=== PATIENT | male | born 1965 | race Caucasian/White ===

== ENCOUNTER 2018-11-01 06:52 | Day surgery (SDC) | payer OTHER ==
[~2018-11-01 06:52] MED LIST: Lactated Ringers 1,000 ML IV SCH
[2018-11-01] MEDS ORDERED: Lidocaine 2% 5 ML SDV ONE (07:00)
[2018-11-01] MEDS ORDERED: Ondansetron 4 MG/2 ML SDV ONE (07:00)
[2018-11-01] MEDS ORDERED: Midazolam 1 MG/ML 2 ML SDV ONE (07:01)
[2018-11-01] MEDS ORDERED: fentaNYL 250 MCG/5 ML SDV ONE (07:01)
[2018-11-01] MEDS ORDERED: Propofol 200 MG/20 ML SDV ONE (07:01)
[2018-11-01] MEDS ORDERED: Lidocaine 1% 20 ML MDV ONE (07:42)
--- NOTE | 2018-11-01 07:49 | PCM.PREANE ---
Preanesthetic Assessment - Anesthesia/Transfusion/Family Hx Anesthesia History: Prior Anesthesia Without Reaction Family History of Anesthesia Reaction: No Transfusion History: Prior Transfusion Without Reaction Intubation History: Unknown - Review of Systems General: No Symptoms Pulmonary: No Symptoms Cardiovascular: No Symptoms Gastrointestinal: No Symptoms Neurological: No Symptoms Other: Reports: None - Physical Assessment NPO Status Date: 11/01/18 NPO Status Time: 06:00 O2 Sat by Pulse Oximetry: 94 Respiratory Rate: 20 Vital Signs: Last Vital Signs Temp 36.3 C 11/01/18 07:04 Pulse 62 11/01/18 07:04 Resp 20 11/01/18 07:04 BP 131/83 11/01/18 07:04 Pulse Ox 94 L 11/01/18 07:04 Height: 6 ft 3 in Weight: 114.305 kg ASA Class: 2 Mental Status: Alert & Oriented x3 Airway Class: Mallampati = 2 Dentition: Reports: Normal Dentition Thyro-Mental Finger Breadths: 3 Mouth Opening Finger Breadths: 3 ROM/Head Extension: Limited/Partial Lungs: Clear to Auscultation, Normal Respiratory Effort Cardiovascular: Regular Rate, Regular Rhythm - Allergies Allergies/Adverse Reactions: Allergies Allergy/AdvReac Type Severity Reaction Status Date / Time No Known Allergies Allergy Verified 10/30/18 08:03 - Blood Blood Available: No - Anesthesia Plan Pre-Op Medication Ordered: None - Acknowledgements Anesthesia Type Planned: General Anesthesia Pt an Appropriate Candidate for the Planned Anesthesia: Yes Alternatives and Risks of Anesthesia Discussed w Pt/Guardian: Yes Pt/Guardian Understands and Agrees with Anesthesia Plan: Yes PreAnesthesia Questionnaire HEENT History: Reports: None Cardiovascular History: Reports: None Respiratory History: Reports: Bronchitis, Recurrent, Pneumonia, Recurrent Gastrointestinal History: Reports: GI Bleed Genitourinary History: Reports: None Musculoskeletal History: Reports: Gout, Neck Pain, Chronic (chronic opioid use, he will have spinal cord stimulator done in 2 months) Neurological History: Reports: Other (See Below) (headaches) Psychiatric History: Reports: None Endocrine/Metabolic History: Reports: Obesity/BMI 30+ Hematologic History: Reports: Blood Transfusion(s) Immunologic History: Reports: None Oncologic (Cancer) History: Reports: None Dermatologic History: Reports: None - Past Surgical History Head Surgeries/Procedures: Reports: None HEENT Surgical History: Reports: None Cardiovascular Surgical History: Reports: None Respiratory Surgical History: Reports: None GI Surgical History: Reports: Other (See Below) Other GI Surgeries/Procedures: abdominal surgery for perferated ulcer Male Surgical History: Reports: None Endocrine Surgical History: Reports: None Neurological Surgical History: Reports: C-Spine Other Neurological Surgeries/Procedures: Anterior cervical spine fusions and Musculoskeletal Surgical History: Reports: None Oncologic Surgical History: Reports: None Dermatological Surgical History: Reports: None - SUBSTANCE USE Smoking Status *Q: Never Smoker Tobacco Use Within Last Twelve Months: Other (See Below) (quit chewing 2 months ago) - HOME MEDS Home Medications: Home Meds Acetaminophen [Tylenol] 1 - 2 tab PO ASDIRECTED PRN 10/30/18 [History] Allopurinol [Zyloprim] 100 mg PO ASDIRECTED 10/30/18 [History] Baclofen 10 mg PO TID PRN 10/30/18 [History] Budesonide/Formoterol [Symbicort 160-4.5 MCG] 2 puff INH BID PRN 10/30/18 [ History] Diclofenac Sodium [Voltaren 1% Gel] 1 applic TOP ASDIRECTED PRN 10/30/18 [ History] Multivitamin [Multivitamins] 1 tab PO DAILY 10/30/18 [History] Pantoprazole Sodium 40 mg PO DAILY 10/30/18 [History] - CURRENT (IN HOUSE) MEDS Current Meds: Current Medications Hydrocodone Bitart/Acetaminophen ([place] 325-5 Mg) 1 - 2 tab PO Q4H PRN PRN Reason: Pain Cefazolin Sodium/Dextrose 2 gm (/ Premix) 50 mls @ 100 mls/hr IV ONCALL [facility] Lactated Ringer's (Ringers, Lactated) 1,000 mls @ 100 mls/hr IV ASDIRECTED [facility] Last Admin: 11/01/18 07:10 Dose: 100 mls/hr Discontinued Medications Fentanyl (Sublimaze) Confirm Administered Dose 250 mcg .ROUTE .STK-MED ONE Stop: 11/01/18 07:02 Lidocaine (Xylocaine-Mpf 2%) Confirm Administered Dose 5 ml .ROUTE .STK-MED ONE Stop: 11/01/18 07:01 Lidocaine HCl (Xylocaine 1%) Confirm Administered Dose 20 ml .ROUTE .STK-MED ONE Stop: 11/01/18 07:43 Midazolam HCl (Versed 1 Mg/Ml) Confirm Administered Dose 2 mg .ROUTE .STK-MED ONE Stop: 11/01/18 07:02 Ondansetron HCl (Zofran) Confirm Administered Dose 4 mg .ROUTE .STK-MED ONE Stop: 11/01/18 07:01 Propofol (Diprivan 20 Ml) Confirm Administered Dose 200 mg .ROUTE .STK-MED ONE Stop: 11/01/18 07:02
[2018-11-01] MEDS ORDERED: ceFAZolin 2 GM in Premix Bag 1 BAG IV SCH (08:00)
[2018-11-01] MEDS ORDERED: Acetaminophen/HYDROcodone 325-5 MG Tab PO PRN (08:00)
[2018-11-01] MEDS ORDERED: ceFAZolin 1 GM Vial ONE (08:41)
[2018-11-01] MEDS ORDERED: ePHEDrine 50 MG/ML SDV ONE (08:47)
[2018-11-01] MEDS ORDERED: Glycopyrrolate 0.2 MG/ML SDV ONE (08:49)
[2018-11-01] MEDS ORDERED: Atropine 0.1 MG/ML 10 ML Syringe IVPUSH PRN ×2 (09:05)
[2018-11-01] MEDS ORDERED: 50% Dextrose in Water 50 ML Syringe IVPUSH PRN (09:05)
[2018-11-01] MEDS ORDERED: EPINEPHrine 1:10,000 1 MG/10 ML Syringe IVPUSH PRN (09:05)
[2018-11-01] MEDS ORDERED: Albuterol 0.083% 2.5 MG/3 ML Neb Soln NEB PRN (09:05)
[2018-11-01] MEDS ORDERED: Naloxone 0.4 MG/ML Syringe IVPUSH PRN (09:05)
[2018-11-01] MEDS ORDERED: fentaNYL 100 MCG/2 ML SDV IVPUSH PRN (09:05)
[2018-11-01] MEDS ORDERED: Sodium Chloride 0.9% 20 ML ONE (09:26)
--- NOTE | 2018-11-01 09:36 | PCM.OPNOTE ---
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
--- NOTE | 2018-11-01 10:51 | OR ---
SURGEON: Sunita Valencia MD DATE OF PROCEDURE: 11/01/2018 PREOPERATIVE DIAGNOSIS: Right knee pain. POSTOPERATIVE DIAGNOSIS: Osteochondral defect, right lateral femoral condyle. PROCEDURE: 1. Right knee arthroscopy with chondroplasty, lateral femoral condyle. 2. Excision of loose body (7 mm x 15 mm x 4 mm). PRIMARY SURGEON: Sunita Valencia MD. CONCRETE BUCKET HOOKER: LAKESHIA Jones. ANESTHESIA: General. ESTIMATED BLOOD LOSS: 5 mL. TOURNIQUET TIME: See nursing record. COMPLICATIONS: None. DVT PROPHYLAXIS: Not indicated. IMPLANTS USED: None. BRIEF HISTORY: Suresh is a 53-year-old male who has had complaint of progressive right knee pain. He had failed conservative treatment. Due to his lack of response to conservative treatment, I did recommend surgical intervention. The risks and goals of procedure were discussed with the patient and were documented preoperatively. He agreed to proceed. DESCRIPTION OF PROCEDURE: The patient was properly identified and brought to the operating room. He was transferred from the OR cart and placed on the operating table in supine position. General anesthesia was administered. After adequate anesthesia was obtained, a well-padded tourniquet was applied to the right lower extremity. The right lower extremity was then prepped in standard fashion using ChloraPrep solution. It was then sterilely draped. A time-out was performed to ensure correct site and procedure. Preoperative antibiotics were given. The surgical site had been marked preoperatively. An Esmarch was used to exsanguinate the right lower extremity and the tourniquet was inflated to 250 mmHg. A lateral portal arthrotomy was established. Blunt trocar and cannula were introduced into the suprapatellar pouch. Camera, inflow, and outflow were assembled. No significant synovitis was noted. The patellofemoral joint was visualized. 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 No loose cartilaginous flaps were noted. The patella appeared to track centrally. I then extended down the lateral and medial gutter. No loose bodies were identified. I then entered the medial compartment. A medial portal arthrotomy was established. A blunt probe was inserted. The meniscus was probed. He was found to have some minor degenerative fraying along the central portion of the meniscus and this was trimmed with a combination of biter and shaver. The remainder of the joint surfaces showed minimal degenerative changes consistent with grade 1 to grade 2 chondromalacia. I then entered the notch. Immediately evident was a large loose body along the anterior aspect of the ACL. This was removed without difficulty. It was measured on the back table and measured 7 mm x 15 mm x 4 mm. The ACL and PCL were probed and found to be intact. I then entered the lateral compartment. Immediately evident was a large defect along the weightbearing portion of the lateral femoral condyle, which measured approximately 15 mm x 20 mm. This was nearly full-thickness cartilage loss with minimal cartilage remaining at the base of the lesion. The edges were probed and were found to be mostly stable. A chondroplasty was used to remove any loose cartilage at the edges. The meniscus was probed and found to be intact. The lateral tibial plateau showed diffuse grade 2 degenerative findings. Instruments were then removed from the knee. The portal sites were closed with 3-0 nylon. 1% Lidocaine was injected along the portal tracts. Xeroform gauze was placed over the wound and a bulky dressing was applied. The tourniquet was then deflated. He was awakened from his anesthetic and transferred back to the operating room cart. He was brought to recovery room in stable condition. All needle and sponge counts were correct. JAYLEN / HAYDEN /[id number]
== END 2018-11-01 10:59 | disposition home or self-care (01) ==
LOC: MW.SDS 06:52
PROVIDERS: ATTEND Orthopaedic Surgery
DX: M21.861 Other specified acquired deformities of right lower leg (principal); M65.861 Other synovitis and tenosynovitis, right lower leg; M22.41 Chondromalacia patellae, right knee; M23.300 Other meniscus derangements, unspecified lateral meniscus, right knee; M17.11 Unilateral primary osteoarthritis, right knee; M10.9 Gout, unspecified; F17.220 Nicotine dependence, chewing tobacco, uncomplicated; E66.9 Obesity, unspecified; Z79.899 Other long term (current) drug therapy; Z68.31 Body mass index [BMI] 31.0-31.9, adult
CPT/HCPCS: 29881; J0690; J2001; J2250; J2405; J2704; J3010; J3490; J7120; 01400; 88304

== ENCOUNTER 2019-01-20 18:36 | Emergency (ER) | payer OTHER ==
[2019-01-20] MEDS ORDERED: Ketorolac 30 MG/ML SDV IVPUSH ONE (19:05)
[2019-01-20] MEDS ORDERED: Ondansetron 4 MG/2 ML SDV IVPUSH ONE (19:05)
[2019-01-20] MEDS ORDERED: Sodium Chloride 0.9% 1,000 ML IV ONE (19:05)
--- NOTE | 2019-01-20 19:08 | EDM.PDOC ---
ED HPI GENERAL MEDICAL PROBLEM - General Chief Complaint: Flank Pain Stated Complaint: PAIN IN KIDNEY AREA Time Seen by Provider: 01/20/19 19:08 Source of Information: Reports: Patient - History of Present Illness INITIAL COMMENTS - FREE TEXT/NARRATIVE: HISTORY AND PHYSICAL: History of present illness: [Patient presents with right flank pain radiating to the testicle since noon today no fever vomiting chills or sweats no chest pain shortness breath headache dizziness palpitation no bowel or urine symptoms however he does rate pain 8 out of 10 at current on arrival ] Review of systems: As per history of present illness and below otherwise all systems reviewed and negative. Past medical history: As per history of present illness and as reviewed below otherwise noncontributory. Surgical history: As per history of present illness and as reviewed below otherwise noncontributory. Social history: No reported history of drug or alcohol abuse. Family history: As per history of present illness and as reviewed below otherwise noncontributory. Physical exam: HEENT: Atraumatic, normocephalic, pupils reactive, negative for conjunctival pallor or scleral icterus, mucous membranes moist, throat clear, neck supple, nontender, trachea midline. Lungs: Clear to auscultation, breath sounds equal bilaterally, chest nontender. Heart: S1S2, regular, negative for clicks, rubs, or JVD. Abdomen: Soft, nondistendedtenderness on deep palpation on the rightve for masses or hepatosplenomegaly. Negative for costovertebral tenderness. Pelvis: Stable nontender. Genitourinary: Deferred. Rectal: Deferred. Extremities: Atraumatic, negative for cords or calf pain. Neurovascular unremarkable. Neuro: Awake, alert, oriented. Cranial nerves II through XII unremarkable. Cerebellum unremarkable. Motor and sensory unremarkable throughout. Exam nonfocal. Diagnostics: [EDC CMP UA DT abdomen pelvis no contrast ] Therapeutics: [Renal saline Zofran Toradol Morphine Ayden Flomax Zofran ] Impression: [ 3 mm right ureteral stone Large gallstone incidental ] landing Chronic history of baseline Definitive disposition and diagnosis as appropriate pending reevaluation and review of above. right flank Pain Score (Numeric/FACES): 10 right testicle Pain Score (Numeric/FACES): 10 - Related Data Allergies Allergy/AdvReac Type Severity Reaction Status Date / Time No Known Allergies Allergy Verified 01/20/19 18:49 Home Meds: Home Meds Acetaminophen [Tylenol] 1 - 2 tab PO ASDIRECTED PRN 10/30/18 [History] Allopurinol [Zyloprim] 100 mg PO ASDIRECTED 10/30/18 [History] Budesonide/Formoterol [Symbicort 160-4.5 MCG] 2 puff INH BID PRN 10/30/18 [ History] Multivitamin [Multivitamins] 1 tab PO DAILY 10/30/18 [History] Pantoprazole Sodium 40 mg PO DAILY 10/30/18 [History] Past Medical History HEENT History: Reports: None Cardiovascular History: Reports: None Respiratory History: Reports: Bronchitis, Recurrent, Pneumonia, Recurrent Gastrointestinal History: Reports: GI Bleed Genitourinary History: Reports: None Musculoskeletal History: Reports: Gout, Neck Pain, Chronic Neurological History: Reports: Other (See Below) Psychiatric History: Reports: None Endocrine/Metabolic History: Reports: Obesity/BMI 30+ Hematologic History: Reports: Blood Transfusion(s) Immunologic History: Reports: None Oncologic (Cancer) History: Reports: None Dermatologic History: Reports: None - Past Surgical History Head Surgeries/Procedures: Reports: None HEENT Surgical History: Reports: None Cardiovascular Surgical History: Reports: None Respiratory Surgical History: Reports: None GI Surgical History: Reports: Other (See Below) Other GI Surgeries/Procedures: abdominal surgery for perferated ulcer Male Surgical History: Reports: None Endocrine Surgical History: Reports: None Neurological Surgical History: Reports: C-Spine Other Neurological Surgeries/Procedures: Anterior cervical spine fusions '98 and '04 Musculoskeletal Surgical History: Reports: Arthroscopic Knee, Other (See Below) Other Musculoskeletal Surgeries/Procedures:: neck fusion Oncologic Surgical History: Reports: None Dermatological Surgical History: Reports: None Social & Family History - Family History Family Medical History: Noncontributory - Tobacco Use Smoking Status *Q: Never Smoker - Recreational Drug Use Recreational Drug Use: No ED ROS GENERAL - Review of Systems Review Of Systems: See Below ED EXAM, GENERAL - Physical Exam Exam: See Below Course - Vital Signs Last Recorded V/S: Last Vital Signs Temp 97.5 F 01/20/19 18:46 Pulse 72 01/20/19 18:46 Resp 18 01/20/19 18:46 BP 150/90 H 01/20/19 18:46 Pulse Ox 99 01/20/19 18:46 - Orders/Labs/Meds Orders: Active Orders 24 hr Category Date Time Status CULTURE BLOOD [BC] Stat Lab 01/20/19 19:50 Received CULTURE BLOOD [BC] Stat Lab 01/20/19 20:20 Received Blood Culture x2 Reflex Set [OM.PC] Stat Oth 01/20/19 19:17 Ordered Labs: Laboratory Tests 01/20/19 01/20/19 01/20/19 Range/Units 19:15 19:15 19:15 WBC 11.27 H (4.0-11.0) K/uL RBC 5.48 (4.50-5.90) M/uL Hgb 15.8 (13.0-17.0) g/dL Hct 47.3 (38.0-50.0) % MCV 86.3 (80.0-98.0) fL MCH 28.8 (27.0-32.0) pg MCHC 33.4 (31.0-37.0) g/dL RDW Std Deviation 47.7 (28.0-62.0) fl RDW Coeff of Emma 15 (11.0-15.0) % Plt Count 315 (150-400) K/uL MPV 10.40 (7.40-12.00) fL Neut % (Auto) 85.2 H (48.0-80.0) % Lymph % (Auto) 8.4 L (16.0-40.0) % Bath % (Auto) 5.3 (0.0-15.0) % Eos % (Auto) 0.6 (0.0-7.0) % Baso % (Auto) 0.5 (0.0-1.5) % Neut # (Auto) 9.6 H (1.4-5.7) K/uL Lymph # (Auto) 1.0 (0.6-2.4) K/uL Bath # (Auto) 0.6 (0.0-0.8) K/uL Eos # (Auto) 0.1 (0.0-0.7) K/uL Baso # (Auto) 0.1 (0.0-0.1) K/uL Nucleated RBC % 0.0 /100WBC Nucleated RBCs # 0 K/uL Sodium 141 (136-148) mmol/L Potassium 4.4 (3.5-5.1) mmol/L Chloride 104 (98-107) mmol/L Carbon Dioxide 24.2 (21.0-32.0) mmol/L BUN 20 H (7.0-18.0) mg/dL Creatinine 1.5 H (0.8-1.3) mg/dL Est Cr Clr Drug Dosing 68.07 mL/min Estimated GFR (MDRD) 49.0 ml/min Glucose 119 H (74-106) mg/dL Calcium 9.6 (8.5-10.1) mg/dL Total Bilirubin 1.2 H (0.2-1.0) mg/dL AST 21 (15-37) IU/L ALT 34 (14-63) IU/L Alkaline Phosphatase 89 (46-116) U/L Troponin I < 0.050 (0.000-0.056) ng/mL Total Protein 8.2 (6.4-8.2) g/dL Albumin 4.4 (3.4-5.0) g/dL Globulin 3.8 (2.6-4.0) g/dL Albumin/Globulin Ratio 1.2 (0.9-1.6) Lipase 175 (73-393) U/L Urine Color Urine Appearance Urine pH (5.0-8.0) Ur Specific [place] (1.001-1.035) Urine Protein (NEGATIVE) mg/dL Urine Glucose (UA) (NEGATIVE) mg/dL Urine Ketones (NEGATIVE) mg/dL Urine Occult Blood (NEGATIVE) Urine Nitrite (NEGATIVE) Urine Bilirubin (NEGATIVE) Urine Urobilinogen (<2.0) EU/dL Ur Leukocyte Esterase (NEGATIVE) Urine RBC (0-2/HPF) Urine WBC (0-5/HPF) Ur Epithelial Cells (NONE-FEW) Urine Bacteria (NEGATIVE) Urine Mucus (NONE-MOD) 01/20/19 Range/Units 19:29 WBC (4.0-11.0) K/uL RBC (4.50-5.90) M/uL Hgb (13.0-17.0) g/dL Hct (38.0-50.0) % MCV (80.0-98.0) fL MCH (27.0-32.0) pg MCHC (31.0-37.0) g/dL RDW Std Deviation (28.0-62.0) fl RDW Coeff of Emma (11.0-15.0) % Plt Count (150-400) K/uL MPV (7.40-12.00) fL Neut % (Auto) (48.0-80.0) % Lymph % (Auto) (16.0-40.0) % Bath % (Auto) (0.0-15.0) % Eos % (Auto) (0.0-7.0) % Baso % (Auto) (0.0-1.5) % Neut # (Auto) (1.4-5.7) K/uL Lymph # (Auto) (0.6-2.4) K/uL Bath # (Auto) (0.0-0.8) K/uL Eos # (Auto) (0.0-0.7) K/uL Baso # (Auto) (0.0-0.1) K/uL Nucleated RBC % /100WBC Nucleated RBCs # K/uL Sodium (136-148) mmol/L Potassium (3.5-5.1) mmol/L Chloride (98-107) mmol/L Carbon Dioxide (21.0-32.0) mmol/L BUN (7.0-18.0) mg/dL Creatinine (0.8-1.3) mg/dL Est Cr Clr Drug Dosing mL/min Estimated GFR (MDRD) ml/min Glucose (74-106) mg/dL Calcium (8.5-10.1) mg/dL Total Bilirubin (0.2-1.0) mg/dL AST (15-37) IU/L ALT (14-63) IU/L Alkaline Phosphatase (46-116) U/L Troponin I (0.000-0.056) ng/mL Total Protein (6.4-8.2) g/dL Albumin (3.4-5.0) g/dL Globulin (2.6-4.0) g/dL Albumin/Globulin Ratio (0.9-1.6) Lipase (73-393) U/L Urine Color YELLOW Urine Appearance SLT CLOUDY Urine pH 5.5 (5.0-8.0) Ur Specific [place] 1.025 (1.001-1.035) Urine Protein NEGATIVE (NEGATIVE) mg/dL Urine Glucose (UA) NEGATIVE (NEGATIVE) mg/dL Urine Ketones NEGATIVE (NEGATIVE) mg/dL Urine Occult Blood LARGE H (NEGATIVE) Urine Nitrite NEGATIVE (NEGATIVE) Urine Bilirubin NEGATIVE (NEGATIVE) Urine Urobilinogen 1.0 (<2.0) EU/dL Ur Leukocyte Esterase NEGATIVE (NEGATIVE) Urine RBC 6-8 (0-2/HPF) Urine WBC 0-1 (0-5/HPF) Ur Epithelial Cells RARE (NONE-FEW) Urine Bacteria RARE (NEGATIVE) Urine Mucus LIGHT (NONE-MOD) Meds: Medications Discontinued Medications Generic Name Dose Route Start Last Admin Trade Name Ignacioq PRN Reason Stop Dose Admin Sodium Chloride 1,000 mls @ 999 mls/hr 01/20/19 19:05 01/20/19 19:23 Normal Saline IV 01/20/19 20:05 999 mls/hr STAT ONE Administration Ketorolac Tromethamine 30 mg 01/20/19 19:05 01/20/19 19:24 Toradol IVPUSH 01/20/19 19:06 30 mg ONETIME ONE Administration Methylprednisolone Sodium Succinate 125 mg 01/20/19 21:10 Solu-Medrol IVPUSH 01/20/19 21:11 ONETIME ONE Morphine Sulfate 2 mg 01/20/19 19:48 01/20/19 19:58 Morphine IVPUSH 01/20/19 19:49 2 mg ONETIME ONE Administration Ondansetron HCl 8 mg 01/20/19 19:05 01/20/19 19:56 Zofran IVPUSH 01/20/19 19:06 8 mg ONETIME ONE Administration Tamsulosin HCl 0.8 mg 01/20/19 21:10 Flomax PO 01/20/19 21:11 NOW STA Departure - Departure Time of Disposition: 21:21 Disposition: Home, Self-Care 01 Condition: Good Clinical Impression: Ureteral stone - Discharge Information Referrals: Julianne Alonso DO [Primary Care Provider] - Forms: ED Department Discharge Additional Instructions: Medication as prescribed Filter urine to collect stone, return stone the primary care or urology Return if symptoms persist or worsen or fever develops, intractable pain or vomiting would also prompt return Follow-up with primary care in 2 weeks sooner as needed Incidental finding of large gallstone may were warrant surgical evaluation, call phone number below to schedule appropriate follow-up rangel Browne [facility] [address] [place] [id number] [facility] [address] [place] [address] [facility] - General Surgery Professional Building [address] [place] [address], [address] [place] [address] The following information is given to patients seen in the emergency department who are being discharged to home. This information is to outline your options for follow-up care. We provide all patients seen in our emergency department with a follow-up referral. The need for follow-up, as well as the timing and circumstances, are variable depending upon the specifics of your emergency department visit. If you don't have a primary care physician on staff, we will provide you with a referral. We always advise you to contact your personal physician following an emergency department visit to inform them of the circumstance of the visit and for follow-up with them and/or the need for any referrals to a consulting specialist. The emergency department will also refer you to a specialist when appropriate. This referral assures that you have the opportunity for follow-up care with a specialist. All of these measure are taken in an effort to provide you with optimal care, which includes your follow-up. Under all circumstances we always encourage you to contact your private physician who remains a resource for coordinating your care. When calling for follow-up care, please make the office aware that this follow-up is from your recent emergency room visit. If for any reason you are refused follow-up, please contact the [facility] emergency department at and asked to speak to the emergency department charge nurse. - My Orders Last 24 Hours: My Active Orders 01/20/19 19:17 Blood Culture x2 Reflex Set [OM.PC] Stat 01/20/19 19:50 CULTURE BLOOD [BC] Stat 01/20/19 20:20 CULTURE BLOOD [BC] Stat - Assessment/Plan Last 24 Hours: My Active Orders 01/20/19 19:17 Blood Culture x2 Reflex Set [OM.PC] Stat 01/20/19 19:50 CULTURE BLOOD [BC] Stat 01/20/19 20:20 CULTURE BLOOD [BC] Stat
[2019-01-20] MEDS ORDERED: Morphine 2 MG/ML Syringe IVPUSH ONE (19:48)
[2019-01-20 19:50] LABS: BLOOD UREA NITROGEN,BUN 20 mg/dL (7.0-18.0); CARBON DIOXIDE,CO2 24.2 mmol/L (21.0-32.0); CHLORIDE,CL 104 mmol/L (98-107); GLUCOSE RANDOM 119 mg/dL (74-106); POTASSIUM,K 4.4 mmol/L (3.5-5.1); SODIUM,NA 141 mmol/L (136-148)
--- NOTE | 2019-01-20 21:04 | CT ---
INDICATION: Right flank pain. TECHNIQUE: Noncontrast axial images with sagittal and coronal reconstructions. COMPARISON: None. FINDINGS: Lower chest: Normal heart size. No pericardial effusion. Lung bases are clear. Abdomen and pelvis: The unenhanced liver appears unremarkable. A single large calcified stone is within the gallbladder. No CT signs of acute cholecystitis. Benign calcifications are seen in the normal size spleen. The unenhanced pancreas appears unremarkable. No adrenal gland abnormality. There are approximately 5 tiny nonobstructing intrarenal calculi on the right, and approximately 4 on the left. There is mild right-sided hydroureteronephrosis secondary to a 3 mm stone at the right ureterovesicular junction. Mild atherosclerotic changes. Normal caliber abdominal aorta. No acute GI tract abnormality. No free air free fluid. Prostate size is with normal limits. Bones: No acute abnormality. IMPRESSION: 1. Mild right-sided hydroureteronephrosis secondary to a 3 mm stone at the right UVJ. 2. Other findings as noted. Dictated by Carlyle Huntley MD @ 01/20/2019 9:03:08 PM Please note that all CT scans at this facility use dose modulation, iterative reconstruction, and/or weight-based dosing when appropriate to reduce radiation dose to as low as reasonably achievable. Dictated by: Carlyle Huntley MD @ 01/20/2019 21:03:13 (Electronically Signed)
[2019-01-20] MEDS ORDERED: Tamsulosin 0.4 MG Cap.ER PO STA (21:10)
[2019-01-20] MEDS ORDERED: methylPREDNISolone Sodium Succinate 125 MG/2 ML SDV IVPUSH ONE (21:10)
== END 2019-01-20 21:51 | disposition home or self-care (01) ==
LOC: MW.ED 18:36
DX: N13.2 Hydronephrosis with renal and ureteral calculous obstruction (principal); K80.20 Calculus of gallbladder without cholecystitis without obstruction; E66.9 Obesity, unspecified; Z68.32 Body mass index [BMI] 32.0-32.9, adult
CPT/HCPCS: 36415; 74176; 80053; 81001; 83690; 84484; 85025; 87040; 96361; 96374; 96375; 99284; A9270; J1885; J2270; J2405; J2930; J7040

== ENCOUNTER 2019-01-31 08:24 | Day surgery (SDC) | payer OTHER ==
[~2019-01-31 08:24] MED LIST changes: +Lidocaine 2% 5 ML SDV ONE; +Propofol 200 MG/20 ML SDV ONE; +Sodium Chloride 0.9% 10 ML SDV IV PRN; +Sodium Chloride 0.9% 10 ML Syringe FLUSH PRN; +Sodium Chloride 0.9% 2.5 ML Syringe FLUSH PRN; +fentaNYL 100 MCG/2 ML SDV ONE
--- NOTE | 2019-01-31 09:05 | PCM.PREANE ---
Preanesthetic Assessment - Anesthesia/Transfusion/Family Hx Anesthesia History: Prior Anesthesia Reaction (awoke during colonoscopy) Family History of Anesthesia Reaction: No Transfusion History: Prior Transfusion Without Reaction Intubation History: Unknown - Review of Systems General: No Symptoms Pulmonary: No Symptoms Cardiovascular: No Symptoms Gastrointestinal: No Symptoms Neurological: No Symptoms Other: Reports: None - Physical Assessment Height: 6 ft 3 in Weight: 116.573 kg ASA Class: 2 Mental Status: Alert & Oriented x3 Airway Class: Mallampati = 2 Dentition: Reports: Normal Dentition ROM/Head Extension: Limited/Partial Lungs: Clear to Auscultation, Normal Respiratory Effort Cardiovascular: Regular Rate, Regular Rhythm - Allergies Allergies/Adverse Reactions: Allergies Allergy/AdvReac Type Severity Reaction Status Date / Time No Known Allergies Allergy Verified 01/25/19 15:28 - Blood Blood Available: No - Anesthesia Plan Pre-Op Medication Ordered: None - Acknowledgements Anesthesia Type Planned: General Anesthesia Pt an Appropriate Candidate for the Planned Anesthesia: Yes Alternatives and Risks of Anesthesia Discussed w Pt/Guardian: Yes Pt/Guardian Understands and Agrees with Anesthesia Plan: Yes Additional Comments: anes prob list: RAD, hx of PUD, RLS, dhronic pain syndrome, s/p cerv fusion C3- 7 with limited cev extension Plan: tiva PreAnesthesia Questionnaire HEENT History: Reports: Hard of Hearing, Other (See Below) Other HEENT History: wears glasses Cardiovascular History: Reports: None Respiratory History: Reports: Bronchitis, Recurrent, Pneumonia, Recurrent Other Respiratory History: currently has bronchitis but is "getting over it" Gastrointestinal History: Reports: Cholelithiasis, Colon Polyp, GERD, GI Bleed, PUD Genitourinary History: Reports: Renal Calculus Other Genitourinary History: currently has kidney stone Musculoskeletal History: Reports: Gout, Neck Pain, Chronic, Osteoarthritis Neurological History: Reports: Concussion Psychiatric History: Reports: None Endocrine/Metabolic History: Reports: Obesity/BMI 30+ Hematologic History: Reports: Blood Transfusion(s) Immunologic History: Reports: None Oncologic (Cancer) History: Reports: None Dermatologic History: Reports: None - Past Surgical History Head Surgeries/Procedures: Reports: None GI Surgical History: Reports: Colonoscopy, EGD, Other (See Below) Other GI Surgeries/Procedures: Laparotony for perforated ulcer Neurological Surgical History: Reports: C-Spine, Spinal Fusion Other Neurological Surgeries/Procedures: cervical fusion C3-4-5-6-7 Musculoskeletal Surgical History: Reports: Arthroscopic Knee - SUBSTANCE USE Smoking Status *Q: Former Smoker Tobacco Use Within Last Twelve Months: Snuff/Dip Recreational Drug Use History: No - HOME MEDS Home Medications: Home Meds Acetaminophen [Tylenol] 1 - 2 tab PO ASDIRECTED PRN 10/30/18 [History] Budesonide/Formoterol [Symbicort 160-4.5 MCG] 2 puff INH BID PRN 10/30/18 [ History] Multivitamin [Multivitamins] 1 tab PO DAILY 10/30/18 [History] Pantoprazole Sodium 40 mg PO DAILY 10/30/18 [History] Acetaminophen/HYDROcodone [[place] 325-5 MG] 1 tab PO ASDIRECTED PRN 01/25/19 [ History] Allopurinol [Zyloprim] 100 mg PO DAILY 01/25/19 [History] Tamsulosin [Flomax] 0.4 mg PO DAILY 01/26/19 [History] - CURRENT (IN HOUSE) MEDS Current Meds: Current Medications Lactated Ringer's (Ringers, Lactated) 1,000 mls @ 125 mls/hr IV ASDIRECTED WALDO Last Admin: 01/31/19 09:00 Dose: 125 mls/hr Sodium Chloride (Saline Flush) 10 ml FLUSH ASDIRECTED PRN PRN Reason: Keep Vein Open Sodium Chloride (Saline Flush) 2.5 ml FLUSH ASDIRECTED PRN PRN Reason: Keep Vein Open Sodium Chloride (Saline Flush) 10 ml FLUSH ASDIRECTED PRN PRN Reason: Keep Vein Open Sodium Chloride (Saline Flush) 2.5 ml FLUSH ASDIRECTED PRN PRN Reason: Keep Vein Open Sodium Chloride (Normal Saline) 10 ml IV ASDIRECTED PRN PRN Reason: IV Use Discontinued Medications Fentanyl (Sublimaze) Confirm Administered Dose 100 mcg .ROUTE .STK-MED ONE Stop: 01/31/19 08:12 Lidocaine (Xylocaine-Mpf 2%) Confirm Administered Dose 5 ml .ROUTE .STK-MED ONE Stop: 01/31/19 08:16 Propofol (Diprivan 20 Ml) Confirm Administered Dose 400 mg .ROUTE .STK-MED ONE Stop: 01/31/19 08:11
[2019-01-31] MEDS ORDERED: Midazolam 1 MG/ML 2 ML SDV ONE (09:24)
--- NOTE | 2019-01-31 10:05 | PCM.POSTAN ---
POST ANESTHESIA ASSESSMENT - MENTAL STATUS Mental Status: Alert, Oriented - VITAL SIGNS Vital Signs: Last Vital Signs Temp 97.3 F 01/31/19 09:18 Pulse 54 L 01/31/19 09:18 Resp 16 01/31/19 09:18 BP 117/78 01/31/19 09:18 Pulse Ox 99 01/31/19 09:18 - RESPIRATORY Respiratory Status: Respiratory Rate WNL, Airway Patent, O2 Saturation Stable - CARDIOVASCULAR CV Status: Pulse Rate WNL, Blood Pressure Stable - GASTROINTESTINAL GI Status: No Symptoms - POST OP HYDRATION Hydration Status: Adequate & Stable
--- NOTE | 2019-01-31 10:38 | PCM.OPNOTE ---
- General Post-Op/Procedure Note Date of Surgery/Procedure: 01/31/19 Operative Procedure(s): Diagnostic EGD and screening colonoscopy Findings: Normal appearing EGD, normal colonoscopy Pre Op Diagnosis: History of PUD, history of colon polyps, abdominal pain Post-Op Diagnosis: same Anesthesia Technique: MAC Primary Surgeon: Leonila Nolan Condition: Good
--- NOTE | 2019-01-31 10:54 | PCM48HPAN ---
Post Anesthesia Note - EVALUATION WITHIN 48HRS OF ANESTHETIC Vital Signs in Normal Range: Yes Patient Participated in Evaluation: Yes Respiratory Function Stable: Yes Airway Patent: Yes Cardiovascular Function Stable: Yes Hydration Status Stable: Yes Pain Control Satisfactory: Yes Nausea and Vomiting Control Satisfactory: Yes Mental Status Recovered: Yes Vital Signs: Last Vital Signs Temp 97.3 F 01/31/19 09:18 Pulse 56 L 01/31/19 10:44 Resp 10 L 01/31/19 10:44 BP 117/66 01/31/19 10:40 Pulse Ox 96 01/31/19 10:44
--- NOTE | 2019-02-01 12:09 | OR ---
SURGEON: LEONILA NOLAN MD DATE OF PROCEDURE: 01/31/2019 PREOPERATIVE DIAGNOSES: 1. Abdominal pain. 2. History of colon polyps. POSTOPERATIVE DIAGNOSES: Normal esophagogastroduodenoscopy, normal colonoscopy. PROCEDURES PERFORMED: Diagnostic esophagogastroduodenoscopy and screening colonoscopy. PRIMARY SURGEON: Leonila Nolan MD. ANESTHESIA: MAC. INSTRUMENT USED: Olympus endoscope, Olympus colonoscope. EXTENT OF EXAM: To the second portion of duodenum, to the cecum. PREPARATION: Good. LIMITATIONS: None. INDICATIONS FOR EXAMINATION: The patient is a 53-year-old male who presents with a history of upper abdominal pain as well as a history of colon polyps. The decision was made to proceed with a diagnostic EGD and screening colonoscopy. I explained the procedures; expected perioperative course; and risks including bleeding, infection, or damage to surrounding structures including perforation. The patient verbalized understanding and wishes to proceed. PROCEDURE IN DETAIL: The patient was brought into the endoscopy suite and placed in the left lateral decubitus position. A time-out was completed verifying the patient's name, age, date of , allergies, and procedure to be performed. Monitored anesthesia care was induced and a bite block was placed in the patient's mouth. Continuous oxygen was provided via nasal cannula throughout the procedure. After adequate sedation was achieved, a well-lubricated endoscope was placed in the patient's mouth and advanced under direct visualization to the second portion of duodenum. This appeared normal and a photograph was taken. The scope was then fully withdrawn while examining the color, texture, anatomy, and integrity of the mucosa of the upper GI tract. The duodenal mucosa appeared normal with no evidence of inflammation. The scope was then brought into the stomach and a photograph was taken of the pylorus and GE junction. Both appeared anatomically normal. The gastric mucosa was free of inflammation or ulceration. Biopsies were taken of the gastric antrum, body, and fundus and sent for histologic review and H. pylori testing. The scope was then brought into the distal esophagus and a photograph was taken of the Z-line. This appeared normal. The esophagus itself appeared free of pathology. The scope was removed and this portion of procedure terminated. A digital rectal exam was performed. This exam was within normal limits. A well-lubricated colonoscope was inserted in the rectum and advanced under direct visualization to the level of the cecum. The cecum was identified by both visual and anatomic landmarks. A photograph was taken of the cecal cap as well as with the scope in a retroflexed position. The scope was then fully withdrawn while examining the color, texture, anatomy, and integrity of the mucosa from the cecum to the anal canal. The findings were consistent with normal colonic mucosa. The scope was brought into the rectum and retroflexed to allow visualization of the anal canal opening. This was normal and a photograph was taken. The scope was then straightened out and fully withdrawn. The cecum to anus time was 7 minutes. The patient tolerated the procedure well and was taken to the PACU in stable condition. ENDOSCOPIC DIAGNOSIS: Normal esophagogastroduodenoscopy and colonoscopy. RECOMMENDATIONS: We will follow up with the patient in clinic in 2 weeks to discuss the biopsy results from his stomach biopsies. We will then also discuss possible cholecystectomy for the patient's known cholelithiasis. DAYAMI BLAKE /[id number] PERLA
== END 2019-01-31 11:15 | disposition home or self-care (01) ==
LOC: MW.SDS 08:24
PROVIDERS: ATTEND Surgery
DX: K29.50 Unspecified chronic gastritis without bleeding (principal); M17.11 Unilateral primary osteoarthritis, right knee; K21.9 Gastro-esophageal reflux disease without esophagitis; M19.90 Unspecified osteoarthritis, unspecified site; M10.9 Gout, unspecified; E66.9 Obesity, unspecified; F17.220 Nicotine dependence, chewing tobacco, uncomplicated; Z86.010 Personal history of colon polyps; Z79.899 Other long term (current) drug therapy; Z68.32 Body mass index [BMI] 32.0-32.9, adult
CPT/HCPCS: 88305; 88312; J2001; J2250; J2704; J3010; J7120

== ENCOUNTER → 2019-03-01 | Day surgery (SDC) | payer OTHER ==
[~2019-03-01] MED LIST changes: +Bupivacaine 0.5% 30 ML SDV ONE; +Dexamethasone 4 MG/ML 5 ML MDV ONE; +Glycopyrrolate 0.2 MG/ML SDV ONE; +HYDROmorphone 2 MG/ML Syringe ONE; +Metoclopramide 10 MG/2 ML SDV ONE; +Midazolam 1 MG/ML 2 ML SDV ONE; +Neostigmine Methylsulfate 1 MG/ML 5 ML Syringe ONE; +Ondansetron 4 MG/2 ML SDV ONE; +Rocuronium 100 MG/10 ML Syringe ONE; +Scopolamine 1.5 MG Transdermal Patch TRDERM PRN; +ceFAZolin 2 GM in Premix Bag 1 BAG IV ONE; +ceFAZolin/Dextrose,Iso-Osmotic 2 GM/50 ML Duplex Bag IV ONE
--- NOTE | 2019-03-01 10:19 | PCM.PREANE ---
Preanesthetic Assessment - Anesthesia/Transfusion/Family Hx Anesthesia History: Prior Anesthesia Without Reaction Family History of Anesthesia Reaction: No Transfusion History: Prior Transfusion Without Reaction Intubation History: Unknown - Review of Systems General: No Symptoms Pulmonary: No Symptoms Cardiovascular: No Symptoms Gastrointestinal: No Symptoms Neurological: No Symptoms Other: Reports: None - Physical Assessment NPO Status Date: 02/28/19 Height: 6 ft 3 in Weight: 117.934 kg ASA Class: 2 Mental Status: Alert & Oriented x3 Airway Class: Mallampati = 2 Dentition: Reports: Normal Dentition ROM/Head Extension: Full Lungs: Clear to Auscultation, Normal Respiratory Effort Cardiovascular: Regular Rate, Regular Rhythm - Allergies Allergies/Adverse Reactions: Allergies Allergy/AdvReac Type Severity Reaction Status Date / Time No Known Allergies Allergy Verified 03/01/19 10:15 - Blood Blood Available: No - Anesthesia Plan Pre-Op Medication Ordered: Other (scop) - Acknowledgements Anesthesia Type Planned: General Anesthesia Pt an Appropriate Candidate for the Planned Anesthesia: Yes Alternatives and Risks of Anesthesia Discussed w Pt/Guardian: Yes Pt/Guardian Understands and Agrees with Anesthesia Plan: Yes Additional Comments: PMH: asthmatic bronchitis, uses symbicort daily, last exacerbation was 2 months ago PLAN: get PreAnesthesia Questionnaire HEENT History: Other HEENT History: wears glasses Cardiovascular History: Reports: None Respiratory History: Reports: Bronchitis, Recurrent, Pneumonia, Recurrent Other Respiratory History: currently has bronchitis but is "getting over it" Gastrointestinal History: Reports: GI Bleed Genitourinary History: Reports: None Other Genitourinary History: currently has kidney stone Musculoskeletal History: Reports: Gout, Neck Pain, Chronic Neurological History: Psychiatric History: Reports: None Endocrine/Metabolic History: Reports: Obesity/BMI 30+ Hematologic History: Reports: Blood Transfusion(s) Immunologic History: Reports: None Oncologic (Cancer) History: Reports: None Dermatologic History: Reports: None - Past Surgical History Head Surgeries/Procedures: Reports: None HEENT Surgical History: Reports: None Cardiovascular Surgical History: Reports: None Respiratory Surgical History: Reports: None GI Surgical History: Reports: Other (See Below) Other GI Surgeries/Procedures: abdominal surgery for perferated ulcer Male Surgical History: Reports: None Endocrine Surgical History: Reports: None Neurological Surgical History: Reports: C-Spine, Spinal Fusion Other Neurological Surgeries/Procedures: Anterior cervical spine fusions and Musculoskeletal Surgical History: Reports: Arthroscopic Knee, Other (See Below) Other Musculoskeletal Surgeries/Procedures:: neck fusion Oncologic Surgical History: Reports: None Dermatological Surgical History: Reports: None - SUBSTANCE USE Smoking Status *Q: Never Smoker - HOME MEDS Home Medications: Home Meds Acetaminophen [Tylenol] 1 - 2 tab PO ASDIRECTED PRN 10/30/18 [History] Budesonide/Formoterol [Symbicort 160-4.5 MCG] 2 puff INH BID PRN 10/30/18 [ History] Multivitamin [Multivitamins] 1 tab PO DAILY 10/30/18 [History] Pantoprazole Sodium 40 mg PO DAILY 10/30/18 [History] Acetaminophen/HYDROcodone [[place] 325-5 MG] 1 tab PO ASDIRECTED PRN 01/25/19 [ History] Allopurinol [Zyloprim] 100 mg PO DAILY 01/25/19 [History] Tamsulosin [Flomax] 0.4 mg PO DAILY 01/26/19 [History] - CURRENT (IN HOUSE) MEDS Current Meds: Current Medications Lactated Ringer's (Ringers, Lactated) 1,000 mls @ 125 mls/hr IV ASDIRECTED WALDO Scopolamine (Transderm-Scop) 1.5 mg TRDERM Q72H PRN PRN Reason: Nausea Sodium Chloride (Saline Flush) 10 ml FLUSH ASDIRECTED PRN PRN Reason: Keep Vein Open Sodium Chloride (Saline Flush) 2.5 ml FLUSH ASDIRECTED PRN PRN Reason: Keep Vein Open Sodium Chloride (Normal Saline) 10 ml IV ASDIRECTED PRN PRN Reason: IV Use Discontinued Medications Bupivacaine HCl (Marcaine 0.5%) Confirm Administered Dose 30 ml .ROUTE .STK-MED ONE Stop: 03/01/19 09:46 Cefazolin Sodium/Dextrose 2 gm (/ Premix) 50 mls @ 100 mls/hr IV ONETIME ONE Stop: 02/26/19 10:47
--- NOTE | 2019-03-01 12:50 | PCM.POSTAN ---
POST ANESTHESIA ASSESSMENT - MENTAL STATUS Mental Status: Alert, Oriented - VITAL SIGNS Vital Signs: Last Vital Signs Temp 97.2 F 03/01/19 10:24 Pulse 46 L 03/01/19 12:44 Resp 12 03/01/19 12:44 BP 109/55 L 03/01/19 12:44 Pulse Ox 96 03/01/19 12:44 - RESPIRATORY Respiratory Status: Respiratory Rate WNL, Airway Patent, O2 Saturation Stable - CARDIOVASCULAR CV Status: Pulse Rate WNL, Blood Pressure Stable - GASTROINTESTINAL GI Status: No Symptoms - POST OP HYDRATION Hydration Status: Adequate & Stable
--- NOTE | 2019-03-01 13:12 | PCM48HPAN ---
Post Anesthesia Note - EVALUATION WITHIN 48HRS OF ANESTHETIC Vital Signs in Normal Range: Yes Patient Participated in Evaluation: Yes Respiratory Function Stable: Yes Airway Patent: Yes Cardiovascular Function Stable: Yes Hydration Status Stable: Yes Pain Control Satisfactory: Yes Nausea and Vomiting Control Satisfactory: Yes Mental Status Recovered: Yes Vital Signs: Last Vital Signs Temp 36.2 C 03/01/19 10:24 Pulse 50 L 03/01/19 12:49 Resp 14 03/01/19 12:49 BP 113/74 03/01/19 12:49 Pulse Ox 94 L 03/01/19 12:49
--- NOTE | 2019-03-01 16:35 | OR ---
SURGEON: LEONILA JOHNSON MD DATE OF PROCEDURE: 03/01/2019 PREOPERATIVE DIAGNOSIS: Symptomatic cholelithiasis. POSTOPERATIVE DIAGNOSES: Cholelithiasis, right upper quadrant intraabdominal adhesions. PROCEDURE PERFORMED: Diagnostic laparoscopy. PRIMARY SURGEON: Leonila Johnson MD. ANESTHESIA: General endotracheal anesthesia. FLUIDS: See Anesthesia record. ESTIMATED BLOOD LOSS: 2 mL. FINDINGS: Extensive right upper quadrant intraabdominal adhesions involving the colon, omentum, and right side of the liver. COMPLICATIONS: None. INDICATIONS: The patient is a 53-year-old male with a past medical history significant for a perforated bleeding duodenal ulcer for which he underwent an emergent exploratory laparotomy many years ago. During the case, the patient had a cardiac arrest due to hemorrhagic shock. The patient had ICU stay afterwards, but did recover. Recently, he was seen in our emergency room with right-sided flank pain. He was found to have bilateral nephrolithiasis as well as a single large gallstone within the gallbladder measuring 2.8 cm. The patient ended up passing some of the kidney stones and his right-sided pain resolved. The patient and I discussed his findings of cholelithiasis. The decision was made to proceed with a cholecystectomy given that this may have contributed to his right upper quadrant pain as well. On physical exam, he had a well-healed right upper quadrant oblique incision. I explained to the patient given this incision, there may be some intraabdominal adhesions in the area that need to be taken down in order to get up the gallbladder. I would still attempt the case laparoscopically and convert to open if need be. The patient and I discussed the expected perioperative course as well as the risks including bleeding, infection, or damage to surrounding structures. He verbalized understanding and wishes to proceed. PROCEDURE IN DETAIL: The patient was brought into the endoscopy suite and placed on the OR table in supine position. A time-out was completed verifying the patient's name, age, date of , allergies, and procedure to be performed. General endotracheal anesthesia was induced. The left arm was tucked to the patient's side and a Gregory catheter placed. The abdomen was then prepped and draped in usual standard fashion. I anesthetized the infraumbilical fold with 0.5% Marcaine plain. An 11 blade was used to make an incision along this fold. Cautery was used to dissect to the level of subcutaneous fat. I then bluntly dissected down to the fascia. The fascia was elevated with Emelia's and incised sharply with curved Herman scissors. Entry into the abdomen was palpated digitally. A 12 mm Michelle trocar was inserted into the abdomen. The abdomen was insufflated with carbon dioxide. A 5 mm 30-degree scope was then inserted into the abdomen. I inspected the area underneath my initial trocar placement and no damage to surrounding structures was noted. I then turned my attention to the right upper quadrant. Upon inspection, the patient had dense intraabdominal adhesions along the right upper quadrant abdominal wall. I could see the underside of the colon and the omentum encasing the surrounding structures. I was unable to visualize the right lobe of the liver. I then turned my attention the left upper quadrant and tried to look around the liver to see if I could see around this area of adhesions. All I could see was a dense wall of adhesions along the right upper quadrant. Given how extensive these adhesions were, I asked my senior formulation scientist, Dr. Sunday Hyman, to consult on the case. He came into the operating room, and I showed him my intraoperative findings. We both agreed that the case would have to go to open, and the patient would have to undergo an extensive lysis of adhesions of the right upper quadrant. Given that we are a critical access hospital with limited resources and that the dissection may be difficult and involve the hepatobiliary anatomy, I made the decision to not proceed any further and to instead have the patient be referred to a hepatobiliary specialist in a larger facility. The camera was removed and the abdomen desufflated. The fascia at the infraumbilical port site was closed with interrupted 0 Vicryl sutures. The subcutaneous fat layer was closed with interrupted 3-0 Vicryl sutures. The skin was then closed with a running 4-0 Monocryl stitch. Steri-Strips and sterile dressings were applied. The patient tolerated the procedure well and was taken to the PACU in stable condition. The patient, his , and I had a discussion regarding my intraoperative findings. I will have the patient referred in the outpatient setting. DAYAMI BLAKE /[id number] PERLA
== END | disposition home or self-care (01) ==
LOC: MW.SDS 09:26
PROVIDERS: ATTEND Surgery
DX: K80.20 Calculus of gallbladder without cholecystitis without obstruction (principal); K66.0 Peritoneal adhesions (postprocedural) (postinfection); N20.0 Calculus of kidney; K29.50 Unspecified chronic gastritis without bleeding; J45.901 Unspecified asthma with (acute) exacerbation; E66.9 Obesity, unspecified; Z68.32 Body mass index [BMI] 32.0-32.9, adult; Z79.51 Long term (current) use of inhaled steroids; Z79.82 Long term (current) use of aspirin; Z79.899 Other long term (current) drug therapy; Z53.8 Procedure and treatment not carried out for other reasons
CPT/HCPCS: A9270-GY; J0690; J1100; J1170; J2001; J2250; J2405; J2704; J2765; J3010; J3490; J7120

== ENCOUNTER 2019-07-22 15:49 | Emergency (ER) | payer OTHER ==
[2019-07-22] MEDS ORDERED: Ketorolac 30 MG/ML SDV IVPUSH ONE (16:09)
[2019-07-22] MEDS ORDERED: Ondansetron 4 MG/2 ML SDV IVPUSH ONE (16:09)
[2019-07-22] MEDS ORDERED: Morphine 4 MG/ML Syringe IVPUSH ONE (16:09)
[2019-07-22] MEDS ORDERED: Sodium Chloride 0.9% 1,000 ML IV ONE (16:09)
--- NOTE | 2019-07-22 16:12 | EDM.PDOC ---
ED HPI GENERAL MEDICAL PROBLEM - General Chief Complaint: Genitourinary Problem Stated Complaint: KIDNEY STONES Time Seen by Provider: 07/22/19 16:03 Source of Information: Reports: Patient History Limitations: Reports: No Limitations - History of Present Illness INITIAL COMMENTS - FREE TEXT/NARRATIVE: HISTORY AND PHYSICAL: History of present illness: Patient is a 54-year-old male who presents to the emergency room today with complaints of left flank pain that radiates into his left groin. He has a history of kidney stones on the right, last one being in March. He states the pain he is experiencing is very similar. Pain started approximately 30 minutes prior to arrival and is increasing in intensity. Prior to this pain he had a normal day and had no complaints. Patient denies any fever, chills, headache, change in vision, syncope or near syncope. Denies any chest pain, shortness of breath or cough. Denies any vomiting, diarrhea, constipation or dysuria. Has not noted any blood in urine or stool. Patient had been eating and drinking appropriately. Review of systems: As per history of present illness and below otherwise all systems reviewed and negative. Past medical history: As per history of present illness and as reviewed below otherwise noncontributory. Surgical history: As per history of present illness and as reviewed below otherwise noncontributory. Social history: See social history for further information Family history: As per history of present illness and as reviewed below otherwise noncontributory. Physical exam: General: Well-developed and well-nourished 54-year-old male. Alert and oriented. Nontoxic-appearing and in no acute distress HEENT: Atraumatic, normocephalic, pupils equal and reactive bilaterally, negative for conjunctival pallor or scleral icterus, mucous membranes moist, trachea midline. No drooling or trismus noted. No meningeal signs. No hot potato voice noted. Lungs: Clear to auscultation, breath sounds equal bilaterally, chest nontender. Heart: S1S2, regular rate and rhythm without overt murmur Abdomen: Soft, nondistended, nontender. Negative for masses. Left sided costovertebral tenderness. Skin: Intact, warm, dry. No lesions or rashes noted. Extremities: Atraumatic, moves all extremities per self without difficulty or deficits, negative for cords or calf pain. Neurovascular unremarkable. Neuro: Awake, alert, oriented. Cranial nerves II through XII unremarkable. Cerebellum unremarkable. Motor and sensory unremarkable throughout. Exam nonfocal. Notes: Obstructing stone in the distal right ureter at the UVJ measuring 3 mm and causing mild dilated right ureter. Multiple nonobstructing stones in both kidneys. Lab work is unremarkable. We did discuss following up with urology. Medication and supportive care measures were reviewed and discussed. Voices understanding and is agreeable to plan of care. Denies any further questions or concerns at this time. Diagnostics: CBC, CMP, UA, CT abd/pelvis Therapeutics: IV fluids, Zofran, Toradol, Morphine Prescription: Flomax, [place] Impression: Kidney Stone Plan: 1. Increase your oral fluids. Strain your urine. 2. Take the medications as prescribed. 3. Follow up with Urology, Dr Mercer, as we discussed. Return to the ED as needed as discussed. Definitive disposition and diagnosis as appropriate pending reevaluation and review of above. Onset: Today Duration: Minutes: Location: Reports: Abdomen, Back Left Flank Pain Score (Numeric/FACES): 9 - Related Data Allergies Allergy/AdvReac Type Severity Reaction Status Date / Time No Known Allergies Allergy Verified 07/22/19 16:21 Home Meds: Home Meds Pantoprazole Sodium 40 mg PO DAILY 10/30/18 [History] Allopurinol [Zyloprim] 100 mg PO DAILY 01/25/19 [History] Past Medical History HEENT History: Other HEENT History: wears glasses Cardiovascular History: Reports: None Respiratory History: Reports: Bronchitis, Recurrent, Pneumonia, Recurrent Other Respiratory History: currently has bronchitis but is "getting over it" Gastrointestinal History: Reports: GI Bleed Genitourinary History: Reports: None Other Genitourinary History: currently has kidney stone Musculoskeletal History: Reports: Gout, Neck Pain, Chronic Neurological History: Psychiatric History: Reports: None Endocrine/Metabolic History: Reports: Obesity/BMI 30+ Hematologic History: Reports: Blood Transfusion(s) Immunologic History: Reports: None Oncologic (Cancer) History: Reports: None Dermatologic History: Reports: None - Past Surgical History Head Surgeries/Procedures: Reports: None HEENT Surgical History: Reports: None Cardiovascular Surgical History: Reports: None Respiratory Surgical History: Reports: None GI Surgical History: Reports: Other (See Below) Other GI Surgeries/Procedures: abdominal surgery for perferated ulcer Male Surgical History: Reports: None Endocrine Surgical History: Reports: None Neurological Surgical History: Reports: C-Spine, Spinal Fusion Other Neurological Surgeries/Procedures: Anterior cervical spine fusions and Musculoskeletal Surgical History: Reports: Arthroscopic Knee, Other (See Below) Other Musculoskeletal Surgeries/Procedures:: neck fusion Oncologic Surgical History: Reports: None Dermatological Surgical History: Reports: None Social & Family History - Family History Family Medical History: Noncontributory ED ROS GENERAL - Review of Systems Review Of Systems: Comprehensive ROS is negative, except as noted in HPI. ED EXAM, RENAL/ - Physical Exam Exam: See Below (See dictation) Course - Vital Signs Last Recorded V/S: Last Vital Signs Temp 96.6 F L 07/22/19 16:00 Pulse 87 07/22/19 16:00 Resp 16 07/22/19 16:00 BP 132/81 07/22/19 16:00 Pulse Ox 97 07/22/19 16:00 - Orders/Labs/Meds Labs: Laboratory Tests 07/22/19 07/22/19 07/22/19 Range/Units 16:15 16:15 16:16 WBC 8.77 (4.0-11.0) K/uL RBC 5.18 (4.50-5.90) M/uL Hgb 14.5 (13.0-17.0) g/dL Hct 45.3 (38.0-50.0) % MCV 87.5 (80.0-98.0) fL MCH 28.0 (27.0-32.0) pg MCHC 32.0 (31.0-37.0) g/dL RDW Std Deviation 47.8 (28.0-62.0) fl RDW Coeff of Emma 15 (11.0-15.0) % Plt Count 305 (150-400) K/uL MPV 10.60 (7.40-12.00) fL Neut % (Auto) 65.6 (48.0-80.0) % Lymph % (Auto) 23.0 (16.0-40.0) % [place] % (Auto) 7.9 (0.0-15.0) % Eos % (Auto) 2.7 (0.0-7.0) % Baso % (Auto) 0.8 (0.0-1.5) % Neut # (Auto) 5.8 H (1.4-5.7) K/uL Lymph # (Auto) 2.0 (0.6-2.4) K/uL [place] # (Auto) 0.7 (0.0-0.8) K/uL Eos # (Auto) 0.2 (0.0-0.7) K/uL Baso # (Auto) 0.1 (0.0-0.1) K/uL Nucleated RBC % 0.0 /100WBC Nucleated RBCs # 0 K/uL Sodium 140 (136-148) mmol/L Potassium 4.0 (3.5-5.1) mmol/L Chloride 105 (98-107) mmol/L Carbon Dioxide 26.8 (21.0-32.0) mmol/L BUN 17 (7.0-18.0) mg/dL Creatinine 1.4 H (0.8-1.3) mg/dL Est Cr Clr Drug Dosing 72.09 mL/min Estimated GFR (MDRD) 52.8 ml/min Glucose 107 H (74-106) mg/dL Calcium 9.0 (8.5-10.1) mg/dL Total Bilirubin 1.3 H (0.2-1.0) mg/dL AST 19 (15-37) IU/L ALT 32 (14-63) IU/L Alkaline Phosphatase 70 (46-116) U/L Total Protein 7.4 (6.4-8.2) g/dL Albumin 4.1 (3.4-5.0) g/dL Globulin 3.3 (2.6-4.0) g/dL Albumin/Globulin Ratio 1.2 (0.9-1.6) Urine Color YELLOW Urine Appearance CLEAR Urine pH 5.5 (5.0-8.0) Ur Specific [place] 1.025 (1.001-1.035) Urine Protein NEGATIVE (NEGATIVE) mg/dL Urine Glucose (UA) NEGATIVE (NEGATIVE) mg/dL Urine Ketones NEGATIVE (NEGATIVE) mg/dL Urine Occult Blood MODERATE H (NEGATIVE) Urine Nitrite NEGATIVE (NEGATIVE) Urine Bilirubin NEGATIVE (NEGATIVE) Urine Urobilinogen 0.2 (<2.0) EU/dL Ur Leukocyte Esterase NEGATIVE (NEGATIVE) Urine RBC 30-35 (0-2/HPF) Urine WBC 0-2 (0-5/HPF) Ur Epithelial Cells OCCASIONAL (NONE-FEW) Urine Bacteria RARE (NEGATIVE) Meds: Medications Discontinued Medications Generic Name Dose Route Start Last Admin Trade Name Jefe PRN Reason Stop Dose Admin Sodium Chloride 1,000 mls @ 999 mls/hr 07/22/19 16:09 07/22/19 16:21 Normal Saline IV 07/22/19 17:09 999 mls/hr STAT ONE Administration Ketorolac Tromethamine 30 mg 07/22/19 16:09 07/22/19 16:22 Toradol IVPUSH 07/22/19 16:10 30 mg ONETIME ONE Administration Morphine Sulfate 4 mg 07/22/19 16:09 07/22/19 16:23 Morphine IVPUSH 07/22/19 16:10 4 mg ONETIME ONE Administration Ondansetron HCl 4 mg 07/22/19 16:09 07/22/19 16:20 Zofran IVPUSH 07/22/19 16:10 4 mg ONETIME ONE Administration Tamsulosin HCl 0.4 mg 07/22/19 16:33 Flomax PO 07/22/19 16:34 ONETIME ONE Departure - Departure Time of Disposition: 17:37 Disposition: Home, Self-Care 01 Clinical Impression: Kidney stone - Discharge Information Instructions: Kidney Stones, [id number] Referrals: Julianne Alonso DO [Primary Care Provider] - Forms: ED Department Discharge Additional Instructions: The following information is given to patients seen in the emergency department who are being discharged to home. This information is to outline your options for follow-up care. We provide all patients seen in our emergency department with a follow-up referral. The need for follow-up, as well as the timing and circumstances, are variable depending upon the specifics of your emergency department visit. If you don't have a primary care physician on staff, we will provide you with a referral. We always advise you to contact your personal physician following an emergency department visit to inform them of the circumstance of the visit and for follow-up with them and/or the need for any referrals to a consulting specialist. The emergency department will also refer you to a specialist when appropriate. This referral assures that you have the opportunity for follow-up care with a specialist. All of these measure are taken in an effort to provide you with optimal care, which includes your follow-up. Under all circumstances we always encourage you to contact your private physician who remains a resource for coordinating your care. When calling for follow-up care, please make the office aware that this follow-up is from your recent emergency room visit. If for any reason you are refused follow-up, please contact the [facility] Emergency Department at and asked to speak to the emergency department charge nurse. [facility] [address] [place] [id number] [facility] - Urology [address] [place] [id number] 1. Increase your oral fluids. Strain your urine. 2. Take the medications as prescribed. 3. Follow up with Urology, Dr Mercer, as we discussed. Return to the ED as needed as discussed. Sepsis Event Note - Focused Exam Vital Signs: Vital Signs Temp Pulse Resp BP Pulse Ox 07/22/19 16:00 96.6 F L 87 16 132/81 97 Date Exam was Performed: 07/22/19 Time Exam was Performed: 17:36
[2019-07-22] MEDS ORDERED: Tamsulosin 0.4 MG Cap.ER PO ONE (16:33)
[2019-07-22 16:42] LABS: CARBON DIOXIDE,CO2 26.8 mmol/L (21.0-32.0)
--- NOTE | 2019-07-22 17:28 | CT ---
CT abdomen and pelvis Technique: Multiple axial sections were obtained from above the dome of the diaphragm inferiorly through the pubic symphysis. Intravenous and oral contrast not utilized. Comparison: Prior CT abdomen and pelvis study of 01/20/19. Findings: Right ureter is mildly prominent down to the bladder. There is an obstructing stone being seen measuring 3 mm which is located at the UVJ. No other abnormal calcifications are seen along the course of the ureters. Numerous small nonobstructing calculi are seen within both kidneys. Visualized lung bases show nothing acute. Liver contains no focal abnormality. Large calcified gallstone is seen within the gallbladder measuring 2.5 cm. Spleen shows evidence of calcified granulomas. Adrenal glands show no nodule. Pancreas is within normal limits. Aorta shows no aneurysm. Mild atherosclerotic calcification is seen within the aorta. No retroperitoneal adenopathy or mesenteric abnormalities are seen. No pelvic mass or adenopathy is seen. No free fluid or inflammatory change is appreciated. Appendix not visualized with certainty. Bone window settings were reviewed which appear within normal limits for the patient's age with no acute osseous finding being seen. Minimal fat-containing umbilical hernia is noted. Impression: 1. Obstructing calculus within the distal right ureter at the UVJ measuring 3 mm and causing mildly dilated right ureter. 2. Multiple small nonobstructing calculi within both kidneys. 3. Other findings believed to be incidental and nonacute as noted above. Diagnostic code #3 This report was dictated in MDT
== END 2019-07-22 17:56 | disposition home or self-care (01) ==
LOC: MW.ED 15:49
DX: N20.2 Calculus of kidney with calculus of ureter (principal); M10.9 Gout, unspecified; E66.9 Obesity, unspecified; Z68.33 Body mass index [BMI] 33.0-33.9, adult; Z79.899 Other long term (current) drug therapy
CPT/HCPCS: 36415; 74176; 80053; 81001; 85025; 96361; 96374; 96375; 99284; J1885; J2270; J2405; J7030; 99283

== ENCOUNTER 2019-07-23 09:00 | Emergency (ER) | payer OTHER ==
--- NOTE | 2019-07-23 09:11 | EDM.PDOC ---
ED HPI GENERAL MEDICAL PROBLEM - General Stated Complaint: PT CLAIMS TO BE PASSING ANOTHER KIDNEY STONE Time Seen by Provider: 07/23/19 09:05 Source of Information: Reports: Patient History Limitations: Reports: No Limitations - History of Present Illness INITIAL COMMENTS - FREE TEXT/NARRATIVE: This 54 year old male presents to the ED with a chief complaint of continued pain in his right flank to right lower abdomen. He was seen in the ED yesterday. His CT of the abdomen revealed multiple stones in both kidneys but a 3mm obstructing stone at the UVJ. He was placed on Flomax and given pain medications until he could see his Urologist at 1:00PM today. He states that he is taking [place] almost hourly but does not help. In questioning the patient he states that they called the Urologist yesterday but was not sure of his 1: 00PM today. - Related Data Allergies Allergy/AdvReac Type Severity Reaction Status Date / Time No Known Allergies Allergy Verified 07/23/19 09:10 Home Meds: Home Meds Pantoprazole Sodium 40 mg PO DAILY 10/30/18 [History] Allopurinol [Zyloprim] 100 mg PO DAILY 01/25/19 [History] Acetaminophen/HYDROcodone [[place] 325-5 MG] 1 tab PO Q4H 07/23/19 [History] Phenazopyridine HCl [Pyridium] 200 mg PO BID PRN 3 Days #6 tablet 07/23/19 [Rx] Tamsulosin HCl [Flomax] 0.4 mg PO DAILY 07/23/19 [History] Past Medical History HEENT History: Other HEENT History: wears glasses Cardiovascular History: Reports: None Respiratory History: Reports: Bronchitis, Recurrent, Pneumonia, Recurrent Other Respiratory History: currently has bronchitis but is "getting over it" Gastrointestinal History: Reports: GI Bleed Genitourinary History: Reports: None Other Genitourinary History: currently has kidney stone Musculoskeletal History: Reports: Gout, Neck Pain, Chronic Neurological History: Psychiatric History: Reports: None Endocrine/Metabolic History: Reports: Obesity/BMI 30+ Hematologic History: Reports: Blood Transfusion(s) Immunologic History: Reports: None Oncologic (Cancer) History: Reports: None Dermatologic History: Reports: None - Past Surgical History Head Surgeries/Procedures: Reports: None HEENT Surgical History: Reports: None Cardiovascular Surgical History: Reports: None Respiratory Surgical History: Reports: None GI Surgical History: Reports: Other (See Below) Other GI Surgeries/Procedures: abdominal surgery for perferated ulcer Male Surgical History: Reports: None Endocrine Surgical History: Reports: None Neurological Surgical History: Reports: C-Spine, Spinal Fusion Other Neurological Surgeries/Procedures: Anterior cervical spine fusions and Musculoskeletal Surgical History: Reports: Arthroscopic Knee, Other (See Below) Other Musculoskeletal Surgeries/Procedures:: neck fusion Oncologic Surgical History: Reports: None Dermatological Surgical History: Reports: None Social & Family History - Family History Family Medical History: Noncontributory ED ROS GENERAL - Review of Systems Review Of Systems: See Below Constitutional: Reports: No Symptoms HEENT: Reports: No Symptoms Respiratory: Reports: No Symptoms Cardiovascular: Reports: No Symptoms Endocrine: Reports: No Symptoms GI/Abdominal: Reports: No Symptoms : Reports: Flank Pain (right) Musculoskeletal: Reports: No Symptoms Skin: Reports: No Symptoms Neurological: Reports: No Symptoms ED EXAM, RENAL/ - Physical Exam Exam: See Below Exam Limited By: No Limitations General Appearance: Alert, WD/WN, Moderate Distress (complaining of right flank to groin pain.) Respiratory/Chest: No Respiratory Distress, Lungs Clear, Normal Breath Sounds Cardiovascular: Normal Peripheral Pulses, Regular Rate, Rhythm, No Edema, No JVD , No Murmur GI/Abdominal: Normal Bowel Sounds, Soft, No Organomegaly, Other (tenderness in right lower quad area into the right flank). No: Guarding, Rigid, Rebound (Male) Exam: Deferred Rectal (Males) Exam: Deferred Back Exam: Normal Inspection, CVA Tenderness (R) Extremities: Normal Inspection, Normal Range of Motion, Non-Tender, Normal Capillary Refill. No: Sal's Sign Neurological: Alert, Oriented (times 4), CN II-XII Intact, Normal Reflexes, No Motor/Sensory Deficits Skin Exam: Warm, Dry, Intact, Normal Color, No Rash Lymphatic: No Adenopathy Course - Vital Signs Text/Narrative:: I reviewed his CT of the abdomen and pelvis. He does have a 3mm obstructing stone in the right UVJ. I discussed this with the patient and told him that he will most likely pass the stone. He will be discharged with an additional Rx for Pyridium 200mg bid for 3 days. He will be seeing his PCP at 1 PM and not a Urologist. He agrees with the discharge plan. Departure - Departure Time of Disposition: 09:28 Disposition: Home, Self-Care 01 Condition: Good Clinical Impression: Renal calculus, right - Discharge Information *PRESCRIPTION DRUG MONITORING PROGRAM REVIEWED*: Yes *COPY OF PRESCRIPTION DRUG MONITORING REPORT IN PATIENT GARRETT: Yes Instructions: Kidney Stones, [id number] Referrals: Julianne Alonso DO [Primary Care Provider] - Additional Instructions: Take all medications as directed. Follow up with your PCP as planned today. Drink plenty of clear liquids for the next 24-48 hours. The new Rx will turn your urine orange which is normal. Rest for the next 24 hours. Return to the ED if your condition gets worse or should you have any questions or concerns. The following information is given to patients seen in the emergency department who are being discharged to home. This information is to outline your options for follow-up care. We provide all patients seen in our emergency department with a follow-up referral. The need for follow-up, as well as the timing and circumstances, are variable depending upon the specifics of your emergency department visit. If you don't have a primary care physician on staff, we will provide you with a referral. We always advise you to contact your personal physician following an emergency department visit to inform them of the circumstance of the visit and for follow-up with them and/or the need for any referrals to a consulting specialist. The emergency department will also refer you to a specialist when appropriate. This referral assures that you have the opportunity for follow-up care with a specialist. All of these measure are taken in an effort to provide you with optimal care, which includes your follow-up. Under all circumstances we always encourage you to contact your private physician who remains a resource for coordinating your care. When calling for follow-up care, please make the office aware that this follow-up is from your recent emergency room visit. If for any reason you are refused follow-up, please contact the [facility] Emergency Department at and asked to speak to the emergency department charge nurse.
[2019-07-23] MEDS ORDERED: Ondansetron 4 MG/2 ML SDV IVPUSH ONE (09:16)
[2019-07-23] MEDS ORDERED: HYDROmorphone 1 MG/ML Syringe IM ONE (09:16)
[2019-07-23] MEDS ORDERED: Phenazopyridine 200 MG Tab PO ONE (09:21)
[2019-07-23] MEDS ORDERED: Ondansetron 4 MG/2 ML SDV IM ONE (09:28)
== END 2019-07-23 10:05 | disposition home or self-care (01) ==
LOC: MW.ED 09:00
DX: N20.2 Calculus of kidney with calculus of ureter (principal); M10.9 Gout, unspecified; E66.9 Obesity, unspecified; Z68.34 Body mass index [BMI] 34.0-34.9, adult; Z79.899 Other long term (current) drug therapy
CPT/HCPCS: 96372; 99284; A9270; J1170; J2405; 99283

== ENCOUNTER 2022-01-06 04:52 | Emergency (ER) | payer OTHER | END 2022-01-06 06:30 | disposition home or self-care (01) | LOC: MW.ED 04:52 | DX: N13.2 Hydronephrosis with renal and ureteral calculous obstruction (principal); M10.9 Gout, unspecified | CPT/HCPCS: 74176; 74176-26; 96361; 96374; 96375; 99283; 99284-25 ==

== ENCOUNTER 2024-02-01 09:25 | Emergency (ER) | payer OTHER ==
[2024-02-01 09:52] LABS: BASOPHILS ABSOLUTE AUTO 0.06 K/uL (0.00-0.20); BASOPHILS PERCENT AUTO 0.5 % (0.0-1.0); EOSINOPHILS PERCENT AUTO 1.6 % (0.0-6.0); HEMOGLOBIN 17.2 g/dL (14.0-18.0); IMMATURE GRAN ABSOLUTE AUTO 0.03 K/uL (0.00-0.05); IMMATURE GRAN PERCENT AUTO 0.2 % (0.0-0.4); LYMPHOCYTES ABSOLUTE AUTO 1.78 K/uL (1.00-4.80); LYMPHOCYTES PERCENT AUTO 14.2 % (24.0-44.0); MEAN CORPUSCULAR HEMOGLOBIN 29.7 pg (28.0-32.0); MEAN CORPUSCULAR HGB CONC 33.1 g/dL (32.0-36.0); MEAN CORPUSCULAR VOLUME 89.7 fL (83.0-99.0); MONOCYTES ABSOLUTE AUTO 1.12 K/uL (0.00-0.80); MONOCYTES PERCENT AUTO 8.9 % (0.0-8.0); NEUTROPHILS ABSOLUTE AUTO 9.38 K/uL (1.80-7.70); NEUTROPHILS PERCENT AUTO 74.6 % (41.0-71.0); PLATELET COUNT,PLT 255 K/uL (150-400); WHITE BLOOD CELL COUNT,WBC 12.57 K/uL (3.9-11.3)
[2024-02-01 10:19] LABS: A/G RATIO 1.2 (0.9-1.6); BILIRUBIN TOTAL 2.6 mg/dL (0.2-1.0); CALCIUM 9.7 mg/dL (8.5-10.1); CARBON DIOXIDE,CO2 23.4 mmol/L (21.0-32.0); POTASSIUM,K 4.4 mmol/L (3.5-5.1); PROTEIN TOTAL,TP 7.3 g/dL (6.4-8.2)
[2024-02-01 11:09] LABS: CREATININE 1.7 mg/dL (0.8-1.3); EST CRCL DRUG DOSING (CG) 56.61 mL/min
[2024-02-01] MEDS: Iopamidol 755 MG/ML 500 ML Multipack Bottle IVPUSH STA (11:33)
[2024-02-01] MEDS: Heparin Sodium 5,000 Units/ML Vial IVPUSH ONE (12:31)
[2024-02-01] MEDS: Sodium Chloride 0.9% 10 ML Syringe FLUSH PRN (12:31)
[2024-02-01] MEDS: Sodium Chloride 0.9% 2.5 ML Syringe FLUSH PRN (12:32)
[2024-02-01] MEDS: Heparin Sodium/0.45% NaCl 25,000 UNITS/250 ML BAG IV SCH (12:33)
== END 2024-02-01 13:18 ==
LOC: MW.ED 09:25
DX: I26.99 Other pulmonary embolism without acute cor pulmonale (principal); N17.9 Acute kidney failure, unspecified; R79.89 Other specified abnormal findings of blood chemistry; E66.9 Obesity, unspecified; Z68.33 Body mass index [BMI] 33.0-33.9, adult; Z79.899 Other long term (current) drug therapy; Z75.8 Other problems related to medical facilities and other health care
CPT/HCPCS: 36415; 71046; 71275; 80053; 83880; 84484; 85025; 85730; 87428; 93005; 96365; 99285; J1644; J3490; Q9967